=== PATIENT | female | born 1945 | race Two or more races ===

== ENCOUNTER → 2020-01-07 | Outpatient (CLI) | payer OTHER ==
[2020-01-07 13:04] LABS: Urine Bacteria FEW /hpf (None Seen); Urine Blood Negative /uL (Negative); Urine Specific Gravity 1.007 (1.001-1.035); Urine WBC 3 /hpf (0 - 5)
== END | disposition home or self-care (01) ==
LOC: LAB 12:45
PROVIDERS: ATTEND Nurse Practitioner
DX: N39.0 Urinary tract infection, site not specified (principal)
CPT/HCPCS: 81001; 87086

== ENCOUNTER → 2020-07-13 | Outpatient (CLI) | payer OTHER ==
[2020-07-13 10:39] LABS: Basophils # (auto) 0 10 ^3/uL (0-0.2); Eosinophils # (auto) 0 10 ^3/uL (0-0.8); Monocytes # (auto) 0.6 10 ^3/uL (0-1.3); White Blood Cell 4.2 10^3/uL (4.4-10.8)
[2020-07-13 10:41] LABS: Basophils % (auto) 1.1 % (0.0-2.0); Eosinophils % (auto) 0.9 % (0.0-7.0); Hematocrit 25.4 % (36.0-46.0); Hemoglobin 8.2 g/dL (12.2-16.2); Lymphocytes # (auto) 0.5 10 ^3/uL (0.4-5.4); Lymphocytes % (auto) 11.4 % (10.0-50.0); Mean Corpuscular Hemoglobin 26.4 pg (28.0-32.0); Mean Corpuscular Hgb Conc. 32.2 g/dL (32.0-36.0); Monocytes % (auto) 14.8 % (0.0-12.0); Neutrophils % (auto) 71.8 % (37.0-80.0); Platelet Count (auto) 197 10^3/uL (140-450); Red Cell Distribution Width 17.2 % (11.8-14.3)
[2020-07-13 11:10] LABS: Urine Bacteria MANY /hpf (None Seen); Urine Blood Negative /uL (Negative); Urine Mucus FEW (None Seen); Urine Specific Gravity 1.011 (1.001-1.035); Urine WBC 44 /hpf (0 - 5)
[2020-07-13 11:56] LABS: Albumin 3.1 g/dL (3.4-5.0); Calcium 8.7 mg/dL (8.5-10.1); Potassium 3.9 mmol/L (3.5-5.1)
[2020-07-13 12:02] LABS: BUN/Creatinine Ratio 11.2; Bilirubin, Total 0.4 mg/dL (0.2-1.0); Total Protein 7.1 g/dL (6.4-8.2)
== END | disposition home or self-care (01) ==
LOC: LAB 10:12
PROVIDERS: ATTEND Nurse Practitioner
DX: I10 Essential (primary) hypertension (principal); E78.5 Hyperlipidemia, unspecified
CPT/HCPCS: 36415; 80053; 80061; 81001; 84443; 85025

== ENCOUNTER → 2020-09-08 | Outpatient (CLI) | payer OTHER ==
[2020-09-08 13:58] LABS: Urine Bacteria MANY /hpf (None Seen); Urine Blood Negative /uL (Negative); Urine Mucus FEW (None Seen); Urine Specific Gravity 1.009 (1.001-1.035); Urine WBC 120 /hpf (0 - 5)
== END | disposition home or self-care (01) ==
LOC: LAB 13:38
PROVIDERS: ATTEND Nurse Practitioner
DX: N39.0 Urinary tract infection, site not specified (principal)
CPT/HCPCS: 81001; 87086; 87088; 87186

== ENCOUNTER → 2021-03-04 | Day surgery (SDC) | payer OTHER ==
[2021-03-01 12:58] LABS: Basophils # (auto) 0 10 ^3/uL (0-0.2); Eosinophils # (auto) 0.1 10 ^3/uL (0-0.8); Hematocrit 25.1 % (36.0-46.0); Monocytes # (auto) 0.6 10 ^3/uL (0-1.3); Neutrophils # (auto) 2.3 10 ^3/uL (1.6-8.6); White Blood Cell 3.6 10^3/uL (4.4-10.8)
[2021-03-01 13:00] LABS: Eosinophils % (auto) 2.3 % (0.0-7.0); Lymphocytes # (auto) 0.7 10 ^3/uL (0.4-5.4); Lymphocytes % (auto) 18.4 % (10.0-50.0); Mean Corpuscular Hemoglobin 26.8 pg (28.0-32.0); Mean Corpuscular Hgb Conc. 31.8 g/dL (32.0-36.0); Mean Corpuscular Volume 84.1 fL (80.0-100.0); Monocytes % (auto) 15.3 % (0.0-12.0); Red Blood Cells 2.98 10^6/uL (4.0-5.20); Red Cell Distribution Width 17.8 % (11.8-14.3)
[2021-03-01 13:25] LABS: INR 1.08 (0.9-1.15); Partial Thromboplastin Time 27.1 sec (23.6-33.0)
[2021-03-01 13:52] LABS: Urine Bacteria MANY /hpf (None Seen); Urine Blood Negative /uL (Negative); Urine Hyaline Cast FEW /lpf (0 - 2); Urine Specific Gravity 1.017 (1.001-1.035); Urine WBC 7 /hpf (0 - 5)
[2021-03-01 14:20] LABS: Albumin 3.2 g/dL (3.4-5.0); Calcium 8.1 mg/dL (8.5-10.1)
[2021-03-01 14:25] LABS: BUN/Creatinine Ratio 20.6; Bilirubin, Total 0.4 mg/dL (0.2-1.0); Total Protein 7.4 g/dL (6.4-8.2)
[~2021-03-04] VITALS: Ht 167.6 cm; Wt 65.3 kg
[~2021-03-04] MED LIST: CITA10TA8 PO; LOSA-39 PO; METO25TA5 PO; MIDAZOLAM HCL 2MG/2ML 2ml VIAL (1mg/ml) ONE; ONDANSETRON HCL 4 MG/2 ML VIAL ONE; PANT40TA2 PO; PROPOFOL 10 MG/ML 20 ML IV ONE; fentaNYL CITRATE 100 MCG/2 ML VL ONE
[2021-03-04 16:00] VITALS: BP 137/74
== END | disposition home or self-care (01) ==
LOC: GI 09:42
PROVIDERS: ATTEND Internal Medicine Gastroenterology
DX: R13.10 Dysphagia, unspecified (principal); Z98.890 Other specified postprocedural states; Z79.899 Other long term (current) drug therapy; Z20.822 Contact with and (suspected) exposure to COVID-19
CPT/HCPCS: 36415; 43239; 43450; 80053; 81001; 85025; 85610; 85730; J2250; J2405; J2704; J3010; J7030; U0003

== ENCOUNTER 2022-01-06 01:38 | Inpatient (IN) | payer OTHER ==
[2022-01-06] VITALS (10 sets, daily range): BP systolic 113–148; BP diastolic 60–81
[~2022-01-06] VITALS: Ht 165.1 cm; Wt 67.0 kg
[~2022-01-06 01:38] MED LIST changes: -MIDAZOLAM HCL 2MG/2ML 2ml VIAL (1mg/ml) ONE; -ONDANSETRON HCL 4 MG/2 ML VIAL ONE; -PROPOFOL 10 MG/ML 20 ML IV ONE; -fentaNYL CITRATE 100 MCG/2 ML VL ONE
[2022-01-06 02:58] LABS: Basophils # (auto) 0 10 ^3/uL (0-0.2); Eosinophils # (auto) 0.2 10 ^3/uL (0-0.8); Eosinophils % (auto) 5.2 % (0.0-7.0); Hematocrit 18.7 % (36.0-46.0); Lymphocytes # (auto) 0.7 10 ^3/uL (0.4-5.4); Lymphocytes % (auto) 20.2 % (10.0-50.0); Mean Corpuscular Hemoglobin 23.7 pg (28.0-32.0); Mean Corpuscular Hgb Conc. 30.7 g/dL (32.0-36.0); Mean Corpuscular Volume 77.2 fL (80.0-100.0); Monocytes # (auto) 0.5 10 ^3/uL (0-1.3); Monocytes % (auto) 15.6 % (0.0-12.0); Neutrophils # (auto) 1.9 10 ^3/uL (1.6-8.6); Nucleated Red Blood Cells % 0.3 %; Red Blood Cells 2.42 10^6/uL (4.0-5.20); Red Cell Distribution Width 17.9 % (11.8-14.3); White Blood Cell 3.2 10^3/uL (4.4-10.8)
[2022-01-06 03:06] LABS: Hemoglobin 5.7 g/dL (12.2-16.2)
[2022-01-06 03:13] LABS: Albumin 3.1 g/dL (3.4-5.0); Potassium 4.2 mmol/L (3.5-5.1)
[2022-01-06 03:16] LABS: Urine Bacteria MANY /hpf (None Seen); Urine Blood Negative /uL (Negative); Urine Specific Gravity 1.006 (1.001-1.035); Urine WBC 6 /hpf (0 - 5)
[2022-01-06 03:17] LABS: BUN/Creatinine Ratio 17.5; Bilirubin, Total 0.6 mg/dL (0.2-1.0); Calcium 8.5 mg/dL (8.5-10.1)
[2022-01-06] MEDS ORDERED: cefTRIAXone 1GM/50ML D5W 50 ML IV ONE (05:45)
[2022-01-06] MEDS ORDERED: MORPHINE SULFATE INJ 2 MG/ml SYRG IV PRN (11:00)
[2022-01-06] MEDS ORDERED: FUROSEMIDE 40 MG/4 ML VIAL IV ONE (11:00)
[2022-01-06] MEDS ORDERED: PANTOPRAZOLE 40 MG/10 ML VIAL INJ IV ONE (11:00)
[2022-01-06] MEDS ORDERED: ONDANSETRON HCL 4 MG/2 ML VIAL IV PRN (11:00)
[2022-01-06 12:02] LABS: Cholesterol 92 mg/dL (< 200)
[2022-01-06 12:05] LABS: HDL Cholesterol 33 mg/dL (40-59); LDL Cholesterol 50 mg/dL (< 100); Triglycerides 87 mg/dL (< 150)
[2022-01-06 13:36] LABS: Hepatitis A Ab IgM Negative; Hepatitis B Core IgM Negative; Hepatitis C Antibody Negative (Negative)
[2022-01-06] MEDS: metroNIDAZOLE 500MG/100ML 100 ML IV SCH ×2 (14:45→22:08)
[2022-01-06] MEDS ORDERED: hydrALAZINE HCL 20 MG/ML VL IV PRN (15:30)
[2022-01-06] MEDS ORDERED: IOHEXOL 350 MG/ML 100ML IJ ONE ×2 (15:53→18:05)
[2022-01-06 18:05] LABS: INR 1.18 (0.9-1.15)
[2022-01-06 19:47] LABS: Hematocrit 29.9 % (36.0-46.0); Hemoglobin 9.3 g/dL (12.2-16.2)
[2022-01-06] MEDS: PANTOPRAZOLE 40 MG/10 ML VIAL INJ IV SCH (22:08)
[2022-01-06] MEDS: METOPROLOL TARTRATE 25 MG TAB PO SCH (22:09)
[2022-01-07 01:23] LABS: Hematocrit 25.7 % (36.0-46.0); Hemoglobin 8.3 g/dL (12.2-16.2)
[2022-01-07 05:00] VITALS: BP 139/69
[2022-01-07] MEDS: metroNIDAZOLE 500MG/100ML 100 ML IV SCH ×3 (05:49→22:37)
[2022-01-07 06:51] LABS: White Blood Cell 2.5 10^3/uL (4.4-10.8)
[2022-01-07 06:54] LABS: Hematocrit 26.1 % (36.0-46.0); Hemoglobin 8.4 g/dL (12.2-16.2); Mean Corpuscular Hemoglobin 25.5 pg (28.0-32.0); Mean Corpuscular Volume 79.8 fL (80.0-100.0); Red Blood Cells 3.28 10^6/uL (4.0-5.20); Red Cell Distribution Width 18.4 % (11.8-14.3)
[2022-01-07 06:56] LABS: Blast Cells 0; Reactive Lymphocytes 0
[2022-01-07 07:02] LABS: Potassium 3.9 mmol/L (3.5-5.1)
[2022-01-07 07:09] LABS: BUN/Creatinine Ratio 15.6; Calcium 8.4 mg/dL (8.5-10.1); Total Protein 6.9 g/dL (6.4-8.2)
[2022-01-07 07:26] LABS: Band Neutrophils % (manual) 3; Basophils % (manual) 1 (0.0-2.0); Eosinophils % (manual) 3 (0-7); Lymphocytes % (manual) 14 (10.0-50.0); Metamyelocytes % 1; Monocytes % (manual) 3 (0-12); Myelocytes % 1; Promyelocytes % 1
[2022-01-07 08:01] VITALS: BP 140/70
[2022-01-07 09:00] VITALS: BP 122/54
[2022-01-07] MEDS: PANTOPRAZOLE 40 MG/10 ML VIAL INJ IV SCH ×2 (09:24→22:37)
[2022-01-07] MEDS: METOPROLOL TARTRATE 25 MG TAB PO SCH ×2 (09:26→22:37)
[2022-01-07] MEDS: POTASSIUM CHL 10 Meq TABLET PO SCH (09:27)
[2022-01-07] MEDS: LOSARTAN POTASSIUM 25 MG TAB PO SCH (09:28)
[2022-01-07] MEDS ORDERED: FUROSEMIDE 20 MG/2 ML VIAL IV SCH (10:00)
[2022-01-07] MEDS: SODIUM CHLORIDE 0.9% 1,000 ML IV SCH ×2 (11:00→21:00)
[2022-01-07 13:00] VITALS: BP 142/63
[2022-01-07 16:36] VITALS: BP 149/75
[2022-01-07] MEDS: FUROSEMIDE 20 MG/2 ML VIAL IV SCH ×2 (18:00→22:35)
[2022-01-07 22:00] VITALS: BP 106/67
[2022-01-08] MEDS ORDERED: TEMAZEPAM 15 MG CAP PO ONE (00:30)
[2022-01-08 04:54] VITALS: BP 110/48
[2022-01-08] MEDS: metroNIDAZOLE 500MG/100ML 100 ML IV SCH ×2 (05:15→14:04)
[2022-01-08] MEDS: SODIUM CHLORIDE 0.9% 1,000 ML IV SCH ×2 (05:16→17:22)
[2022-01-08 07:47] LABS: Hemoglobin 8.8 g/dL (12.2-16.2); Red Cell Distribution Width 18.2 % (11.8-14.3); White Blood Cell 2.3 10^3/uL (4.4-10.8)
[2022-01-08 07:50] LABS: Hematocrit 27.6 % (36.0-46.0); Mean Corpuscular Hemoglobin 25.1 pg (28.0-32.0); Mean Corpuscular Hgb Conc. 31.9 g/dL (32.0-36.0); Mean Corpuscular Volume 78.6 fL (80.0-100.0); Red Blood Cells 3.52 10^6/uL (4.0-5.20)
[2022-01-08 08:00] VITALS: BP 120/70
[2022-01-08 08:08] LABS: Basophils % (manual) 0 (0.0-2.0); Blast Cells 0; Metamyelocytes % 0; Myelocytes % 0; Promyelocytes % 0; Reactive Lymphocytes 0
[2022-01-08 08:48] LABS: Band Neutrophils % (manual) 1; Eosinophils % (manual) 7 (0-7); Lymphocytes % (manual) 25 (10.0-50.0); Monocytes % (manual) 7 (0-12)
[2022-01-08 09:08] VITALS: BP_SYST 102; BP_SYST 139; BP_DIAS 46; BP_DIAS 95
[2022-01-08] MEDS: FUROSEMIDE 20 MG/2 ML VIAL IV SCH (09:19)
[2022-01-08] MEDS: LOSARTAN POTASSIUM 25 MG TAB PO SCH (09:20)
[2022-01-08] MEDS: METOPROLOL TARTRATE 25 MG TAB PO SCH (09:21)
[2022-01-08] MEDS: POTASSIUM CHL 10 Meq TABLET PO SCH (09:21)
[2022-01-08] MEDS: PANTOPRAZOLE 40 MG/10 ML VIAL INJ IV SCH (09:22)
[2022-01-08 13:01] VITALS: BP 116/56
[2022-01-08 16:15] VITALS: BP 110/56
[2022-01-08 17:00] VITALS: BP 121/65
== END 2022-01-08 18:38 | disposition home or self-care (01) | DRG 811 ==
LOC: ER 01:38 → EDUNIT# 01:38 → EDBD 01:38 → TELE 11:14 → TELE-WESTW 18:19
PROVIDERS: ADMIT Registered Nurse; ATTEND Internal Medicine
PROC: 30233N1 Transfusion of Nonautologous Red Blood Cells into Peripheral Vein, Percutaneous Approach (ICD-10-PCS; principal; 2022-01-06)
DX: D64.9 Anemia, unspecified (principal); I50.31 Acute diastolic (congestive) heart failure; J96.00 Acute respiratory failure, unspecified whether with hypoxia or hypercapnia; N39.0 Urinary tract infection, site not specified; K92.2 Gastrointestinal hemorrhage, unspecified; K72.90 Hepatic failure, unspecified without coma; F32.A Depression, unspecified; Z20.822 Contact with and (suspected) exposure to COVID-19; I11.0 Hypertensive heart disease with heart failure; D69.6 Thrombocytopenia, unspecified; I27.20 Pulmonary hypertension, unspecified; Z88.1 Allergy status to other antibiotic agents; Z88.5 Allergy status to narcotic agent; Z88.8 Allergy status to other drugs, medicaments and biological substances
CPT/HCPCS: 36415; 71045; 71275; 74176; 76705; 80053; 80061; 80074; 81001; 82728; 83036; 83880; 84443; 84484; 85007; 85014; 85018; 85025; 85027; 85379; 85610; 86038; 86850; 86900; 86901; 86920; 87086; 93005; 93306; 96365; 96375; C9113; G0378; J0696; J3490

== ENCOUNTER → 2022-10-06 | Outpatient (CLI) | payer OTHER ==
[~2022-10-06] MED LIST changes: -LOSA-39 PO; +LOSA100T58 PO
[2022-10-06 14:37] LABS: Basophils # (auto) 0 10 ^3/uL (0-0.2); Eosinophils # (auto) 0.1 10 ^3/uL (0-0.8); Lymphocytes # (auto) 0.5 10 ^3/uL (0.4-5.4); Mean Corpuscular Hemoglobin 23.6 pg (28.0-32.0); Monocytes # (auto) 0.3 10 ^3/uL (0-1.3); Monocytes % (auto) 14.8 % (0.0-12.0); White Blood Cell 2.3 10^3/uL (4.4-10.8)
[2022-10-06 14:38] LABS: Basophils % (auto) 1.3 % (0.0-2.0); Eosinophils % (auto) 4.1 % (0.0-7.0); Hematocrit 19.7 % (36.0-46.0); Lymphocytes % (auto) 20.5 % (10.0-50.0); Mean Corpuscular Hgb Conc. 30.1 g/dL (32.0-36.0); Mean Corpuscular Volume 78.5 fL (80.0-100.0); Neutrophils # (auto) 1.4 10 ^3/uL (1.6-8.6); Neutrophils % (auto) 59.3 % (37.0-80.0); Red Blood Cells 2.51 10^6/uL (4.0-5.20); Red Cell Distribution Width 18.6 % (11.8-14.3)
[2022-10-06 14:46] LABS: Hemoglobin 5.9 g/dL (12.2-16.2)
[2022-10-06 15:08] LABS: Albumin 3.1 g/dL (3.4-5.0); Calcium 7.9 mg/dL (8.5-10.1); Potassium 4.3 mmol/L (3.5-5.1)
[2022-10-06 15:12] LABS: BUN/Creatinine Ratio 15.6 (10.0-20.0); Bilirubin, Total 0.9 mg/dL (0.2-1.0); Total Protein 7.3 g/dL (6.4-8.2)
== END | disposition home or self-care (01) ==
LOC: LAB 14:14
DX: I50.9 Heart failure, unspecified (principal); I27.0 Primary pulmonary hypertension
CPT/HCPCS: 36415; 80053; 82728; 83880; 84443; 85025

== ENCOUNTER 2022-10-07 17:58 | Inpatient (IN) | payer OTHER ==
[~2022-10-07] VITALS: Ht 165.1 cm; Wt 61.3 kg
[2022-10-07 18:45] LABS: Basophils # (auto) 0 10 ^3/uL (0-0.2); Lymphocytes # (auto) 0.4 10 ^3/uL (0.4-5.4); Mean Corpuscular Volume 79.4 fL (80.0-100.0); Monocytes # (auto) 0.4 10 ^3/uL (0-1.3); Neutrophils # (auto) 1.6 10 ^3/uL (1.6-8.6); Nucleated Red Blood Cells % 0.1 %
[2022-10-07 18:47] LABS: Basophils % (auto) 1.2 % (0.0-2.0); Eosinophils # (auto) 0.1 10 ^3/uL (0-0.8); Eosinophils % (auto) 3.9 % (0.0-7.0); Hematocrit 19.3 % (36.0-46.0); Lymphocytes % (auto) 15.9 % (10.0-50.0); Mean Corpuscular Hemoglobin 23.7 pg (28.0-32.0); Mean Corpuscular Hgb Conc. 29.8 g/dL (32.0-36.0); Monocytes % (auto) 15.9 % (0.0-12.0); Neutrophils % (auto) 63.1 % (37.0-80.0); Red Blood Cells 2.43 10^6/uL (4.0-5.20); Red Cell Distribution Width 18.8 % (11.8-14.3); White Blood Cell 2.6 10^3/uL (4.4-10.8)
[2022-10-07] MEDS ORDERED: IOHEXOL 300 MG/ML 100ML BOTTLE IJ ONE (18:51)
[2022-10-07 18:52] LABS: Hemoglobin 5.8 g/dL (12.2-16.2)
[2022-10-07 19:01] LABS: Potassium 4.4 mmol/L (3.5-5.1)
[2022-10-07 19:02] LABS: INR 1.28 (0.9-1.15)
[2022-10-07 19:04] LABS: Bilirubin, Total 0.8 mg/dL (0.2-1.0)
[2022-10-07] MEDS ORDERED: DOXYCYCLINE 100 MG TAB/CAP PO ONE (20:15)
[2022-10-07] MEDS ORDERED: cefTRIAXone 1GM/50ML D5W 50 ML IV ONE (20:15)
[2022-10-07] MEDS ORDERED: FUROSEMIDE 40 MG/4 ML VIAL IV ONE (20:15)
[2022-10-07] MEDS ORDERED: oxyCODONE HCL 5MG TAB PO STA (20:56)
[2022-10-07] MEDS ORDERED: IBUPROFEN 400 MG TAB PO PRN (23:00)
[2022-10-07] MEDS ORDERED: DOCUSATE SOD 100 MG CAP PO PRN (23:00)
[2022-10-07] MEDS ORDERED: ONDANSETRON HCL 4 MG/2 ML VIAL IV PRN (23:00)
[2022-10-08] VITALS (8 sets, daily range): BP systolic 104–139; BP diastolic 40–86
[2022-10-08] MEDS ORDERED: PANTOPRAZOLE 40 MG/10 ML VIAL INJ IV ONE
[2022-10-08] MEDS ORDERED: NITROGLYCERIN 0.4 MG SL TAB SL PRN (00:30)
[2022-10-08] MEDS ORDERED: MORPHINE SULFATE INJ 2 MG/ml SYRG IV PRN (00:30)
[2022-10-08] MEDS: SODIUM CHLOR 0.9% PF (SALINE LOCK) 10ML VIAL/SYR IV SCH ×3 (06:30→22:46)
[2022-10-08 06:49] LABS: Hematocrit 26.4 % (36.0-46.0); Hemoglobin 8.4 g/dL (12.2-16.2); Mean Corpuscular Hemoglobin 25.5 pg (28.0-32.0); White Blood Cell 2.2 10^3/uL (4.4-10.8)
[2022-10-08 06:51] LABS: Mean Corpuscular Hgb Conc. 31.6 g/dL (32.0-36.0); Mean Corpuscular Volume 80.7 fL (80.0-100.0); Red Blood Cells 3.28 10^6/uL (4.0-5.20); Red Cell Distribution Width 16.9 % (11.8-14.3)
[2022-10-08 07:06] LABS: Albumin 2.8 g/dL (3.4-5.0); Potassium 4.4 mmol/L (3.5-5.1)
[2022-10-08 07:08] LABS: BUN/Creatinine Ratio 16.1 (10.0-20.0)
[2022-10-08 07:11] LABS: Total Protein 6.6 g/dL (6.4-8.2)
[2022-10-08 07:13] LABS: Band Neutrophils % (manual) 0; Basophils % (manual) 0 (0.0-2.0); Blast Cells 0; Metamyelocytes % 0; Myelocytes % 0; Promyelocytes % 0; Reactive Lymphocytes 0
[2022-10-08] MEDS: CARVEDILOL 3.125 MG TAB PO SCH ×2 (09:51→22:00)
[2022-10-08] MEDS: FUROSEMIDE 40 MG/4 ML VIAL IV SCH (09:52)
[2022-10-08] MEDS ORDERED: FAMOTIDINE (10MG/ML) 2ML VL IV SCH (10:00)
[2022-10-08] MEDS ORDERED: DOXYCYCLINE 100MG/250ML 250 ML IV SCH (10:00)
[2022-10-08] MEDS ORDERED: cefTRIAXone 1GM/50ML D5W 50 ML IV ONE ×2 (11:00)
[2022-10-08 12:11] LABS: Urine Bacteria FEW /hpf (None Seen); Urine Blood Negative /uL (Negative); Urine Mucus FEW (None Seen); Urine Specific Gravity 1.033 (1.001-1.035); Urine WBC 11 /hpf (0 - 5)
[2022-10-08 12:53] LABS: Cholesterol 89 mg/dL (< 200)
[2022-10-08 12:55] LABS: HDL Cholesterol 26 mg/dL (40-59); LDL Cholesterol 55 mg/dL (< 100); Triglycerides 62 mg/dL (< 150)
[2022-10-08 13:34] LABS: Hemoglobin 8.9 g/dL (12.2-16.2); Mean Corpuscular Hemoglobin 25.6 pg (28.0-32.0); Red Blood Cells 3.49 10^6/uL (4.0-5.20); White Blood Cell 2.3 10^3/uL (4.4-10.8)
[2022-10-08 13:37] LABS: Hematocrit 29.2 % (36.0-46.0); Mean Corpuscular Hgb Conc. 30.5 g/dL (32.0-36.0); Mean Corpuscular Volume 83.8 fL (80.0-100.0); Red Cell Distribution Width 16.9 % (11.8-14.3)
[2022-10-08 13:41] LABS: Lymphocytes % (manual) 22 (10.0-50.0)
[2022-10-08 13:42] LABS: Eosinophils % (manual) 5 (0-7); Monocytes % (manual) 14 (0-12)
[2022-10-08 13:50] LABS: Band Neutrophils % (manual) 0; Basophils % (manual) 0 (0.0-2.0); Blast Cells 0; Eosinophils % (manual) 0 (0-7); Metamyelocytes % 0; Myelocytes % 0; Promyelocytes % 0; Reactive Lymphocytes 0
[2022-10-08] MEDS: metroNIDAZOLE 500MG/100ML 100 ML IV SCH ×2 (13:57→22:46)
[2022-10-08 14:31] LABS: Lymphocytes % (manual) 28 (10.0-50.0); Monocytes % (manual) 8 (0-12)
[2022-10-08] MEDS ORDERED: ACETAMINOPHEN 325 MG TAB PO PRN (19:15)
[2022-10-08] MEDS: PANTOPRAZOLE 40 MG/10 ML VIAL INJ IV SCH (22:46)
[2022-10-09] VITALS (7 sets, daily range): BP systolic 105–136; BP diastolic 50–61
[2022-10-09] MEDS ORDERED: LORazepam 2MG/ML-1ML VIAL IV PRN (00:30)
[2022-10-09] MEDS ORDERED: HALOPERIDOL LACTATE 5 MG/ML INJ VIAL IM PRN (00:45)
[2022-10-09] MEDS: metroNIDAZOLE 500MG/100ML 100 ML IV SCH ×3 (05:21→21:52)
[2022-10-09] MEDS: SODIUM CHLOR 0.9% PF (SALINE LOCK) 10ML VIAL/SYR IV SCH ×3 (05:21→21:51)
[2022-10-09 05:26] LABS: Potassium 3.6 mmol/L (3.5-5.1)
[2022-10-09 05:31] LABS: % Iron Saturation 14.5 % (15-50)
[2022-10-09 05:33] LABS: BUN/Creatinine Ratio 14.8 (10.0-20.0); Bilirubin, Total 1.1 mg/dL (0.2-1.0); CRP High Sensitivity 0.43 mg/dL (< 0.3); Calcium 8.4 mg/dL (8.5-10.1); Phosphorus 3.1 mg/dL (2.5-4.90); Total Protein 6.9 g/dL (6.4-8.2)
[2022-10-09 05:43] LABS: INR 1.31 (0.9-1.15); Partial Thromboplastin Time 29.6 SEC (24.5-34.5)
[2022-10-09 05:52] LABS: Basophils # (auto) 0 10 ^3/uL (0-0.2); Basophils % (auto) 1.2 % (0.0-2.0); Eosinophils # (auto) 0.1 10 ^3/uL (0-0.8); Hemoglobin 8.4 g/dL (12.2-16.2); Lymphocytes # (auto) 0.2 10 ^3/uL (0.4-5.4); Lymphocytes % (auto) 10.1 % (10.0-50.0); Monocytes # (auto) 0.3 10 ^3/uL (0-1.3); Neutrophils # (auto) 1.8 10 ^3/uL (1.6-8.6); White Blood Cell 2.4 10^3/uL (4.4-10.8)
[2022-10-09 05:55] LABS: Eosinophils % (auto) 2.1 % (0.0-7.0); Hematocrit 26.6 % (36.0-46.0); Mean Corpuscular Hemoglobin 25.7 pg (28.0-32.0); Mean Corpuscular Hgb Conc. 31.7 g/dL (32.0-36.0); Mean Corpuscular Volume 81.1 fL (80.0-100.0); Neutrophils % (auto) 75.6 % (37.0-80.0); Nucleated Red Blood Cells % 0.3 %; Red Blood Cells 3.28 10^6/uL (4.0-5.20); Red Cell Distribution Width 17.3 % (11.8-14.3)
[2022-10-09 06:05] LABS: Thyroid Stimulating Hormone 1.01 uIU/mL (0.358-3.74)
[2022-10-09] MEDS: PANTOPRAZOLE 40 MG/10 ML VIAL INJ IV SCH ×2 (09:20→21:51)
[2022-10-09] MEDS: FUROSEMIDE 40 MG/4 ML VIAL IV SCH (09:20)
[2022-10-09] MEDS: cefTRIAXone 1GM/50ML D5W 50 ML IV SCH (09:20)
[2022-10-09] MEDS: CARVEDILOL 3.125 MG TAB PO SCH ×2 (09:21→21:51)
[2022-10-09] MEDS ORDERED: POTASSIUM CHL 20 Meq TABLET PO ONE (14:15)
[2022-10-09] MEDS ORDERED: MAGNESIUM SULFATE 1GM/100ML 100 ML IV ONE (14:15)
[2022-10-10 05:00] VITALS: BP 103/46
[2022-10-10] MEDS: metroNIDAZOLE 500MG/100ML 100 ML IV SCH ×2 (05:16→13:24)
[2022-10-10] MEDS: SODIUM CHLOR 0.9% PF (SALINE LOCK) 10ML VIAL/SYR IV SCH ×2 (05:19→13:24)
[2022-10-10 06:12] LABS: Hemoglobin 8.7 g/dL (12.2-16.2); Mean Corpuscular Hemoglobin 25.4 pg (28.0-32.0); Mean Corpuscular Volume 79.5 fL (80.0-100.0); Red Cell Distribution Width 17.3 % (11.8-14.3); White Blood Cell 2.1 10^3/uL (4.4-10.8)
[2022-10-10 06:19] LABS: Band Neutrophils % (manual) 0; Basophils % (manual) 0 (0.0-2.0); Blast Cells 0; Metamyelocytes % 0; Myelocytes % 0; Promyelocytes % 0; Reactive Lymphocytes 0
[2022-10-10 06:26] LABS: Albumin 2.7 g/dL (3.4-5.0); Calcium 8.1 mg/dL (8.5-10.1); Magnesium 2.3 mg/dL (1.6-2.6); Potassium 3.5 mmol/L (3.5-5.1)
[2022-10-10 06:28] LABS: BUN/Creatinine Ratio 14.3 (10.0-20.0); Bilirubin, Total 0.9 mg/dL (0.2-1.0); Total Protein 6.5 g/dL (6.4-8.2)
[2022-10-10 08:00] VITALS: BP 131/68
[2022-10-10] MEDS: cefTRIAXone 1GM/50ML D5W 50 ML IV SCH (08:57)
[2022-10-10] MEDS: FUROSEMIDE 40 MG/4 ML VIAL IV SCH (08:57)
[2022-10-10] MEDS: CARVEDILOL 3.125 MG TAB PO SCH (08:58)
[2022-10-10] MEDS: PANTOPRAZOLE 40 MG/10 ML VIAL INJ IV SCH (08:58)
[2022-10-10 09:00] VITALS: BP 131/68
[2022-10-10] MEDS ORDERED: MIDAZOLAM HCL 5 MG/ML-1ML VIAL ONE (09:06)
[2022-10-10] MEDS ORDERED: SODIUM CHLORIDE LOCK 0 ML ONE (09:06)
[2022-10-10] MEDS ORDERED: LIDOCAINE VISCOUS 2% 15ML UD ONE (09:06)
[2022-10-10] MEDS ORDERED: fentaNYL CITRATE 100 MCG/2 ML VL ONE (09:07)
[2022-10-10] MEDS ORDERED: diphenhdrAMINE HCL 50 MG/1 ML VL ONE (09:07)
[2022-10-10 09:26] LABS: Ferritin 18.7 ng/mL (10-322); Free T4 (Free Thyroxine) 1.04 ng/dL (0.89-1.76)
[2022-10-10 09:27] LABS: Folate (Folic Acid) 10.51 ng/mL (5.38-24)
[2022-10-10 09:30] LABS: Eosinophils % (manual) 3 (0-7); Lymphocytes % (manual) 28 (10.0-50.0); Monocytes % (manual) 14 (0-12)
[2022-10-10] MEDS ORDERED: FAMO20TA10 PO (11:50)
[2022-10-10] MEDS ORDERED: MET500T PO (11:50)
[2022-10-10] MEDS ORDERED: LEVO500T91 PO (11:50)
[2022-10-10] MEDS ORDERED: POTASSIUM CHL 20 Meq TABLET PO ONE (12:15)
[2022-10-10 13:00] VITALS: BP 131/61
== END 2022-10-10 15:00 | disposition home or self-care (01) | DRG 432 ==
LOC: EDBD 17:58 → ER 17:58 → EDUNIT# 17:58 → TELE 10-08 00:27 → TELE-EAST 10-08 22:00
PROVIDERS: ADMIT Nurse Practitioner Family; ATTEND Internal Medicine
PROC: 30233N1 Transfusion of Nonautologous Red Blood Cells into Peripheral Vein, Percutaneous Approach (ICD-10-PCS; principal; 2022-10-08)
DX: K74.3 Primary biliary cirrhosis (principal); I50.31 Acute diastolic (congestive) heart failure; J18.9 Pneumonia, unspecified organism; I85.11 Secondary esophageal varices with bleeding; D61.818 Other pancytopenia; I11.0 Hypertensive heart disease with heart failure; I27.20 Pulmonary hypertension, unspecified; R09.02 Hypoxemia; R09.89 Other specified symptoms and signs involving the circulatory and respiratory systems; F32.A Depression, unspecified; K52.9 Noninfective gastroenteritis and colitis, unspecified; Z88.6 Allergy status to analgesic agent; Z88.1 Allergy status to other antibiotic agents; Z88.5 Allergy status to narcotic agent
CPT/HCPCS: 36415; 36430; 71045; 74177; 80053; 80061; 81001; 82040; 82105; 82140; 82270; 82607; 82668; 82728; 82746; 83010; 83036; 83540; 83550; 83605; 83615; 83735; 83880; 84100; 84439; 84443; 84484; 85007; 85025; 85027; 85045; 85379; 85610; 85652; 85730; 86141; 86850; 86900; 86901; 86920; 93005; 93306; 93970; 96365; 96366; 96367; 96375; 99291; C9113; G0378; J0696; J2250; J3490

== ENCOUNTER → 2023-01-24 | Outpatient (CLI) | payer OTHER ==
[~2023-01-24] VITALS: Ht 167.6 cm; Wt 61.2 kg
[~2023-01-24] MED LIST changes: +ADENOSINE 51 MG in GIVE UN-DILUTED 0 ML IV STA; +FAMO20TA10 PO; +LEVO500T91 PO; +MET500T PO; -PANT40TA2 PO
== END | disposition home or self-care (01) ==
LOC: XYW 07:11
PROVIDERS: ATTEND Student in an Organized Health Care Education/Training Program
DX: R07.9 Chest pain, unspecified (principal)
CPT/HCPCS: 78452; 93017; A9500; J0153

== ENCOUNTER → 2023-06-05 | Outpatient (CLI) | payer OTHER ==
[~2023-06-05] MED LIST changes: -ADENOSINE 51 MG in GIVE UN-DILUTED 0 ML IV STA
[2023-06-05 12:28] LABS: Basophils # (auto) 0 10 ^3/uL (0-0.2); Eosinophils # (auto) 0.2 10 ^3/uL (0-0.8); Hemoglobin 7.6 g/dL (12.2-16.2); Mean Corpuscular Volume 86.9 fL (80.0-100.0); Neutrophils # (auto) 1.1 10 ^3/uL (1.6-8.6); White Blood Cell 2.2 10^3/uL (4.4-10.8)
[2023-06-05 12:30] LABS: Basophils % (auto) 1.3 % (0.0-2.0); Eosinophils % (auto) 8.3 % (0.0-7.0); Lymphocytes # (auto) 0.5 10 ^3/uL (0.4-5.4); Lymphocytes % (auto) 24.7 % (10.0-50.0); Mean Corpuscular Hemoglobin 27.4 pg (28.0-32.0); Mean Corpuscular Hgb Conc. 31.6 g/dL (32.0-36.0); Monocytes # (auto) 0.4 10 ^3/uL (0-1.3); Monocytes % (auto) 16.3 % (0.0-12.0); Neutrophils % (auto) 49.4 % (37.0-80.0); Red Blood Cells 2.76 10^6/uL (4.0-5.20); Red Cell Distribution Width 19.7 % (11.8-14.3)
[2023-06-05 12:43] LABS: INR 1.29 (0.9-1.15); Prothrombin Time 13.3 sec (9.3-11.8)
[2023-06-05 13:12] LABS: Alanine Aminotransferase 11 U/L (7-40); Alkaline Phosphatase 125 U/L (46-116); Anion Gap 6 (5-15); Aspartate Aminotransferase 50 U/L (13-40); BUN/Creatinine Ratio 16.5 (10.0-20.0); Blood Urea Nitrogen 13 mg/dL (9-23); Calcium 8.7 mg/dL (8.5-10.1); Carbon Dioxide 26 mmol/L (20-30); Chloride 106 mmol/L (98-107); Glucose 120 mg/dL (74-106); Potassium 4.4 mmol/L (3.5-5.1); Sodium 138 mmol/L (136-145)
[2023-06-05 13:13] LABS: Albumin 3.3 g/dL (3.2-4.8); Bilirubin, Total 0.8 mg/dL (0.2-1.0); Total Protein 6.8 g/dL (5.7-8.2)
[2023-06-05 13:15] LABS: % Iron Saturation 5.2 % (15-50)
== END | disposition home or self-care (01) ==
LOC: LAB 12:13
PROVIDERS: ATTEND Internal Medicine Gastroenterology
DX: K74.60 Unspecified cirrhosis of liver (principal); D64.9 Anemia, unspecified; R94.5 Abnormal results of liver function studies
CPT/HCPCS: 36415; 80053; 82105; 83540; 83550; 85025; 85610

== ENCOUNTER 2023-08-15 13:11 | Inpatient (IN) | payer OTHER ==
[~2023-08-15] VITALS: Ht 157.5 cm; Wt 60.4 kg
[~2023-08-15 13:11] MED LIST changes: +LOSA-535 PO; -LOSA100T58 PO
[2023-08-17] MEDS: OCTREOTIDE ACETATE 500 MCG in SODIUM CHL 0.9% 99 ML IV SCH (21:30)
[2023-08-17] MEDS: PANTOPRAZOLE 40mg/50ML NS AE 50 ML IV SCH (21:30)
[2023-08-17 21:58] LABS: Basophils # (auto) 0 10 ^3/uL (0-0.2); Basophils % (auto) 0.1 % (0.0-2.0); Eosinophils # (auto) 0 10 ^3/uL (0-0.8); Eosinophils % (auto) 0.2 % (0.0-7.0); Hematocrit 23.2 % (36.0-46.0); Hemoglobin 7.6 g/dL (12.2-16.2); Lymphocytes # (auto) 0.5 10 ^3/uL (0.4-5.4); Lymphocytes % (auto) 7.3 % (10.0-50.0); Mean Corpuscular Hemoglobin 28.8 pg (28.0-32.0); Mean Corpuscular Hgb Conc. 32.9 g/dL (32.0-36.0); Mean Corpuscular Volume 87.6 fL (80.0-100.0); Monocytes # (auto) 0.9 10 ^3/uL (0-1.3); Neutrophils # (auto) 5.8 10 ^3/uL (1.6-8.6); Neutrophils % (auto) 80.4 % (37.0-80.0); Red Blood Cells 2.65 10^6/uL (4.0-5.20); Red Cell Distribution Width 17.1 % (11.8-14.3); White Blood Cell 7.3 10^3/uL (4.4-10.8)
[2023-08-17 22:00] VITALS: BP 120/60; PULSE 95; PULSE 99; RESP 15; RESP 16; TEMP 99.7; O2SAT 99
[2023-08-17 22:17] LABS: Alanine Aminotransferase 13 U/L (7-40); Albumin 2.6 g/dL (3.2-4.8); Alkaline Phosphatase 88 U/L (46-116); Anion Gap 5 (5-15); Aspartate Aminotransferase 38 U/L (13-40); BUN/Creatinine Ratio 30.6 (10.0-20.0); Bilirubin, Total 1.6 mg/dL (0.2-1.0); Blood Urea Nitrogen 22 mg/dL (9-23); Calcium 7.9 mg/dL (8.7-10.4); Carbon Dioxide 23 mmol/L (20-30); Chloride 114 mmol/L (98-107); Glucose 132 mg/dL (74-106); Potassium 3.7 mmol/L (3.5-5.1); Sodium 142 mmol/L (136-145)
[2023-08-17 22:18] LABS: Total Protein 5.3 g/dL (5.7-8.2)
[2023-08-17 22:19] LABS: INR 1.47 (0.9-1.15); Partial Thromboplastin Time 37.1 SEC (24.5-34.5); Prothrombin Time 15.1 sec (9.3-11.8)
[2023-08-17] MEDS ORDERED: CLINIMIX PER PHARMACY 0 ML IV SCH (22:30)
[2023-08-17] MEDS ORDERED: METOPROLOL TARTRATE 1MG/1ML-5ML VIAL IV PRN (22:30)
[2023-08-17 23:00] VITALS: BP 117/62; PULSE 96; RESP 38; O2SAT 99
[2023-08-18] VITALS (19 sets, daily range): BP systolic 96–138; BP diastolic 46–75; PULSE 84–112; RESP 11–24; TEMP 97.9–99.7; O2SAT 90–100
[2023-08-18 09:07] LABS: Potassium 3.7 mmol/L (3.5-5.1)
[2023-08-18 09:08] LABS: Calcium 8.1 mg/dL (8.5-10.1)
[2023-08-18 09:13] LABS: BUN/Creatinine Ratio 29.2 (10.0-20.0)
[2023-08-18 09:15] LABS: Albumin 2.3 g/dL (3.2-4.8)
[2023-08-18 10:19] LABS: Phosphorus 2.6 mg/dL (2.4-5.1)
[2023-08-18] MEDS ORDERED: SPIR50TA5 PO (15:14)
[2023-08-18] MEDS ORDERED: PANT-62 PO (15:14)
[2023-08-18] MEDS ORDERED: CITA-73 PO (15:14)
[2023-08-18] MEDS ORDERED: AMLO1TAB22 PO (15:14)
[2023-08-18] MEDS: AMINO ACID INFUSION IN D5W 1,000 ML IV SCH (20:26)
[2023-08-19] VITALS (22 sets, daily range): BP systolic 104–153; BP diastolic 58–79; PULSE 79–103; RESP 15–26; TEMP 98–99.2; O2SAT 90–100
[2023-08-19] MEDS ORDERED: DEXTROSE (50%) 50ML SYRG IV SCH
[2023-08-19] MEDS: ACCU-CHEK COMFORT CURVE STRIP VI SCH (00:30)
[2023-08-19] MEDS: InsuLIN REG 1unit/0.01ml Soln (100units/ml) SC SCH (00:31)
[2023-08-19 05:32] LABS: Albumin 2.2 g/dL (3.2-4.8); Alkaline Phosphatase 79 U/L (46-116); Anion Gap 6 (5-15); Aspartate Aminotransferase 42 U/L (13-40); BUN/Creatinine Ratio 22.1 (10.0-20.0); Blood Urea Nitrogen 15 mg/dL (9-23); Calcium 7.9 mg/dL (8.5-10.1); Carbon Dioxide 21 mmol/L (20-30); Chloride 111 mmol/L (98-107); Glucose 99 mg/dL (74-106); Potassium 3.5 mmol/L (3.5-5.1); Sodium 138 mmol/L (136-145)
[2023-08-19 05:33] LABS: Bilirubin, Total 1.6 mg/dL (0.2-1.0); Phosphorus 1.5 mg/dL (2.4-5.1); Total Protein 5.2 g/dL (5.7-8.2)
[2023-08-19 05:35] LABS: Alanine Aminotransferase < 9 U/L (7-40)
[2023-08-19 06:03] LABS: Magnesium 1.8 mg/dL (1.6-2.6)
[2023-08-19] MEDS: LACTULOSE 20Gm/30ML SOLN PO SCH (13:28)
[2023-08-19 14:40] LABS: Basophils # (auto) 0 10 ^3/uL (0-0.2); Eosinophils # (auto) 0.2 10 ^3/uL (0-0.8); Eosinophils % (auto) 5.7 % (0.0-7.0); Lymphocytes # (auto) 0.5 10 ^3/uL (0.4-5.4); Monocytes # (auto) 0.4 10 ^3/uL (0-1.3)
[2023-08-19 14:42] LABS: Basophils % (auto) 0.2 % (0.0-2.0); Hematocrit 23.5 % (36.0-46.0); Hemoglobin 7.6 g/dL (12.2-16.2); Lymphocytes % (auto) 11.9 % (10.0-50.0); Mean Corpuscular Hgb Conc. 32.4 g/dL (32.0-36.0); Mean Corpuscular Volume 89.5 fL (80.0-100.0); Monocytes % (auto) 9.4 % (0.0-12.0); Neutrophils # (auto) 2.8 10 ^3/uL (1.6-8.6); Neutrophils % (auto) 72.8 % (37.0-80.0); Nucleated Red Blood Cells % 0.1 %; Red Blood Cells 2.63 10^6/uL (4.0-5.20); Red Cell Distribution Width 16.9 % (11.8-14.3); White Blood Cell 3.9 10^3/uL (4.4-10.8)
[2023-08-19] MEDS: POTASSIUM PHOSPHATE 44 MEQ in D5W 5% 250 ML IV ONE (16:16)
[2023-08-20] VITALS (25 sets, daily range): BP systolic 111–151; BP diastolic 52–89; PULSE 79–113; RESP 13–29; TEMP 98.1–99.1; O2SAT 89–100
[2023-08-20 06:15] LABS: Basophils # (auto) 0 10 ^3/uL (0-0.2); Eosinophils # (auto) 0.3 10 ^3/uL (0-0.8); Hemoglobin 7.5 g/dL (12.2-16.2); Monocytes # (auto) 0.5 10 ^3/uL (0-1.3); Neutrophils # (auto) 2.5 10 ^3/uL (1.6-8.6)
[2023-08-20 06:22] LABS: Basophils % (auto) 0.6 % (0.0-2.0); Eosinophils % (auto) 7.3 % (0.0-7.0); Hematocrit 23.3 % (36.0-46.0); Lymphocytes # (auto) 0.5 10 ^3/uL (0.4-5.4); Lymphocytes % (auto) 12.1 % (10.0-50.0); Mean Corpuscular Hgb Conc. 32.3 g/dL (32.0-36.0); Mean Corpuscular Volume 93.2 fL (80.0-100.0); Monocytes % (auto) 14.3 % (0.0-12.0); Neutrophils % (auto) 65.7 % (37.0-80.0); Nucleated Red Blood Cells % 0.2 %; Red Blood Cells 2.51 10^6/uL (4.0-5.20); Red Cell Distribution Width 17.3 % (11.8-14.3); White Blood Cell 3.8 10^3/uL (4.4-10.8)
[2023-08-20 06:34] LABS: Alanine Aminotransferase 11 U/L (7-40); Albumin 2.3 g/dL (3.2-4.8); Alkaline Phosphatase 76 U/L (46-116); Anion Gap 6 (5-15); Aspartate Aminotransferase 43 U/L (13-40); BUN/Creatinine Ratio 21.8 (10.0-20.0); Blood Urea Nitrogen 12 mg/dL (9-23); Calcium 7.8 mg/dL (8.5-10.1); Carbon Dioxide 22 mmol/L (20-30); Chloride 108 mmol/L (98-107); Glucose 136 mg/dL (74-106); Phosphorus 2.5 mg/dL (2.4-5.1); Potassium 3.5 mmol/L (3.5-5.1); Sodium 136 mmol/L (136-145)
[2023-08-20 06:35] LABS: Total Protein 5.2 g/dL (5.7-8.2)
[2023-08-20] MEDS: LACTULOSE 20Gm/30ML SOLN PO SCH (09:03)
[2023-08-20] MEDS: rifAXIMin 550 MG TAB PO SCH (11:45)
[2023-08-20] MEDS: FUROSEMIDE 20 MG/2 ML VIAL IV SCH (12:00)
[2023-08-20] MEDS: POLYETHYLENE GLYCOL 17 GM PWDR PO SCH (12:00)
[2023-08-20] MEDS: ONDANSETRON HCL 4 MG/2 ML VIAL IV PRN (12:17)
[2023-08-20] MEDS: POTASSIUM PHOSPHATE 44 MEQ in D5W 5% 250 ML IV ONE (18:14)
[2023-08-21] VITALS (18 sets, daily range): BP systolic 106–152; BP diastolic 56–85; PULSE 81–120; RESP 17–28; TEMP 97.7–99.1; O2SAT 91–100
[2023-08-21 07:07] LABS: Alanine Aminotransferase 13 U/L (7-40); Albumin 2.4 g/dL (3.2-4.8); Alkaline Phosphatase 80 U/L (46-116); Anion Gap 4 (5-15); Aspartate Aminotransferase 39 U/L (13-40); BUN/Creatinine Ratio 19.3 (10.0-20.0); Basophils # (auto) 0 10 ^3/uL (0-0.2); Blood Urea Nitrogen 11 mg/dL (9-23); Calcium 7.6 mg/dL (8.5-10.1); Carbon Dioxide 27 mmol/L (20-30); Chloride 106 mmol/L (98-107); Eosinophils # (auto) 0.3 10 ^3/uL (0-0.8); Glucose 124 mg/dL (74-106); Hematocrit 23.5 % (36.0-46.0); Hemoglobin 7.8 g/dL (12.2-16.2); Lymphocytes # (auto) 0.5 10 ^3/uL (0.4-5.4); Mean Corpuscular Hemoglobin 30.5 pg (28.0-32.0); Monocytes # (auto) 0.7 10 ^3/uL (0-1.3); Monocytes % (auto) 16.1 % (0.0-12.0); Neutrophils # (auto) 2.8 10 ^3/uL (1.6-8.6); Nucleated Red Blood Cells % 0.1 %; Potassium 3.7 mmol/L (3.5-5.1); Sodium 137 mmol/L (136-145); White Blood Cell 4.3 10^3/uL (4.4-10.8)
[2023-08-21 07:08] LABS: Phosphorus 3.5 mg/dL (2.4-5.1); Total Protein 5.2 g/dL (5.7-8.2)
[2023-08-21 07:10] LABS: Basophils % (auto) 0.5 % (0.0-2.0); Eosinophils % (auto) 7.2 % (0.0-7.0); Mean Corpuscular Volume 92.5 fL (80.0-100.0); Neutrophils % (auto) 64.2 % (37.0-80.0); Red Blood Cells 2.54 10^6/uL (4.0-5.20); Red Cell Distribution Width 17.5 % (11.8-14.3)
[2023-08-21] MEDS: FUROSEMIDE 40 MG/4 ML VIAL IV SCH (09:54)
[2023-08-21] MEDS: SPIRONOLACTONE 25 MG TAB PO ONE (11:38)
[2023-08-21 11:53] LABS: Urine Bacteria MOD /hpf (None Seen); Urine Blood Negative /uL (Negative); Urine Clarity Turbid (Clear); Urine Color Colorless (Yellow); Urine Protein, UAD Negative (Negative); Urine Specific Gravity 1.005 (1.001-1.035); Urine Urobilinogen Normal (Negative); Urine WBC 21 /hpf (0 - 5); Urine WBC Clumps PRESENT /hpf (None Seen)
[2023-08-21 12:50] LABS: Magnesium 1.5 mg/dL (1.6-2.6)
[2023-08-21 13:12] LABS: Magnesium 1.6 mg/dL (1.6-2.6)
[2023-08-21] MEDS: MORPHINE SULFATE INJ 2 MG/ml SYRG IV PRN (21:08)
[2023-08-21] MEDS: PANTOPRAZOLE 40 MG/10 ML VIAL INJ IV SCH (21:19)
[2023-08-22] VITALS (8 sets, daily range): BP systolic 103–141; BP diastolic 59–72; PULSE 78–101; RESP 16–18; TEMP 97.9–98.3; O2SAT 91–99
[2023-08-22] MEDS: SPIRONOLACTONE 25 MG TAB PO SCH (08:41)
[2023-08-22 09:02] LABS: Hematocrit 27.3 % (36.0-46.0); Hemoglobin 8.7 g/dL (12.2-16.2); Mean Corpuscular Hemoglobin 29.3 pg (28.0-32.0); Mean Corpuscular Hgb Conc. 31.7 g/dL (32.0-36.0); Mean Corpuscular Volume 92.4 fL (80.0-100.0); Red Blood Cells 2.96 10^6/uL (4.0-5.20); Red Cell Distribution Width 18.4 % (11.8-14.3); White Blood Cell 4.4 10^3/uL (4.4-10.8)
[2023-08-22 09:06] LABS: Band Neutrophils % (manual) 0; Blast Cells 0; Metamyelocytes % 0; Myelocytes % 0; Reactive Lymphocytes 0
[2023-08-22 09:15] LABS: Albumin 2.4 g/dL (3.2-4.8); Alkaline Phosphatase 86 U/L (46-116); Anion Gap 4 (5-15); Aspartate Aminotransferase 32 U/L (13-40); BUN/Creatinine Ratio 16.4 (10.0-20.0); Bilirubin, Total 2.2 mg/dL (0.2-1.0); Blood Urea Nitrogen 11 mg/dL (9-23); Calcium 7.9 mg/dL (8.5-10.1); Carbon Dioxide 30 mmol/L (20-30); Chloride 104 mmol/L (98-107); Glucose 103 mg/dL (74-106); Potassium 3.6 mmol/L (3.5-5.1); Sodium 138 mmol/L (136-145); Total Protein 5.4 g/dL (5.7-8.2)
[2023-08-22 09:30] LABS: Alanine Aminotransferase < 9 U/L (7-40)
[2023-08-22 11:38] LABS: Basophils % (manual) 1 (0.0-2.0); Eosinophils % (manual) 9 (0-7); Lymphocytes % (manual) 9 (10.0-50.0); Monocytes % (manual) 17 (0-12); Platelet Estimate Decreased; Promyelocytes % 1
[2023-08-22] MEDS: METOPROLOL TARTRATE 25 MG TAB PO ONE (14:13)
[2023-08-22] MEDS: phytonadione 10 MG in SODIUM CHL 0.9% 50 ML IV ONE (19:00)
[2023-08-22] MEDS: METOPROLOL TARTRATE 25 MG TAB PO SCH (22:00)
[2023-08-23] VITALS (7 sets, daily range): BP systolic 105–146; BP diastolic 42–68; PULSE 63–107; RESP 16–19; TEMP 97.6–98.5; O2SAT 91–97
[2023-08-23 07:08] LABS: Hematocrit 27.8 % (36.0-46.0); Hemoglobin 9.1 g/dL (12.2-16.2); Mean Corpuscular Hemoglobin 31.2 pg (28.0-32.0); Mean Corpuscular Hgb Conc. 32.8 g/dL (32.0-36.0); Mean Corpuscular Volume 95.3 fL (80.0-100.0); Red Blood Cells 2.92 10^6/uL (4.0-5.20); White Blood Cell 4.9 10^3/uL (4.4-10.8)
[2023-08-23 07:31] LABS: Alanine Aminotransferase 11 U/L (7-40); Albumin 2.5 g/dL (3.2-4.8); Alkaline Phosphatase 90 U/L (46-116); Anion Gap 6 (5-15); Aspartate Aminotransferase 47 U/L (13-40); BUN/Creatinine Ratio 14.5 (10.0-20.0); Blood Urea Nitrogen 10 mg/dL (9-23); Calcium 8.1 mg/dL (8.5-10.1); Carbon Dioxide 30 mmol/L (20-30); Chloride 101 mmol/L (98-107); Glucose 100 mg/dL (74-106); Magnesium 1.6 mg/dL (1.6-2.6); Potassium 3.7 mmol/L (3.5-5.1); Sodium 137 mmol/L (136-145)
[2023-08-23 07:32] LABS: Bilirubin, Total 2.6 mg/dL (0.2-1.0); Total Protein 5.9 g/dL (5.7-8.2)
[2023-08-23 07:34] LABS: Basophils % (manual) 0 (0.0-2.0); Blast Cells 0; Myelocytes % 0; Promyelocytes % 0; Reactive Lymphocytes 0; Red Cell Distribution Width 22.4 % (11.8-14.3)
[2023-08-23 08:32] LABS: Anisocytosis Slight; Band Neutrophils % (manual) 12; Eosinophils % (manual) 4 (0-7); Lymphocytes % (manual) 13 (10.0-50.0); Metamyelocytes % 2; Monocytes % (manual) 12 (0-12); Platelet Estimate Decreased
[2023-08-23] MEDS: FUROSEMIDE 40 MG TAB PO SCH (10:00)
[2023-08-23] MEDS ORDERED: POLY335015 PO (11:10)
[2023-08-23] MEDS ORDERED: FURO40TA4 PO (11:10)
[2023-08-23] MEDS ORDERED: PANT40TA2 PO (11:10)
[2023-08-23] MEDS ORDERED: LACT10SO3 PO (11:10)
[2023-08-23 13:07] LABS: Anti-Centromere B Antibody <0.2 AI (0.0-0.9); Anti-Jo-1 Antibody <0.2 AI (0.0-0.9); Anti-dsDNA Antibody <1 IU/mL (0-9); Antichromatin Antibody 0.2 AI (0.0-0.9); Antiscleroderma-70 Antibody <0.2 AI (0.0-0.9); RNP Antibody <0.2 AI (0.0-0.9); Sjogren's Anti-SS-A Antibody 1.8 AI (0.0-0.9); Sjogren's Anti-SS-B Antibody <0.2 AI (0.0-0.9); Smith Antibody <0.2 AI (0.0-0.9)
[2023-08-23 17:23] LABS: Base Excess 6.5 mmol/L (-2.0-2.0)
[2023-08-24] MEDS: HALOPERIDOL LACTATE 5 MG/ML INJ VIAL IM ONE (01:00)
[2023-08-24 08:00] VITALS: PULSE 89
[2023-08-24 08:49] VITALS: BP 112/54; PULSE 87; RESP 20; TEMP 97.8; O2SAT 96
[2023-08-24 09:35] LABS: Hepatitis B Core Total AB Negative (Negative)
[2023-08-24 10:47] LABS: Hepatitis A Total Antibody Positive (Negative); Hepatitis B Surface Antibody Negative (Negative); Hepatitis C Antibody Negative (Negative)
[2023-08-24 11:44] LABS: Hepatitis B Surface Antigen Negative (Negative)
[2023-08-24 13:15] VITALS: BP 108/59; PULSE 79; RESP 20; TEMP 97.7; O2SAT 96
[2023-08-24 16:49] VITALS: BP 101/45; PULSE 73; RESP 18; TEMP 98; O2SAT 95
== END 2023-08-24 17:35 | disposition hospice, home (50) | DRG 291 ==
LOC: UNDOADMIN 13:26 → TELE 13:26 → ICU WEST 08-17 21:15 → DOU IN ICU 08-18 12:42 → TELE-EAST 08-21 19:51
PROVIDERS: ADMIT Internal Medicine; ATTEND Internal Medicine
DX: I11.0 Hypertensive heart disease with heart failure (principal); I50.43 Acute on chronic combined systolic (congestive) and diastolic (congestive) heart failure; J96.00 Acute respiratory failure, unspecified whether with hypoxia or hypercapnia; K74.3 Primary biliary cirrhosis; F32.A Depression, unspecified; D64.9 Anemia, unspecified; I27.21 Secondary pulmonary arterial hypertension; D69.6 Thrombocytopenia, unspecified; I48.91 Unspecified atrial fibrillation; Z79.899 Other long term (current) drug therapy; Z82.49 Family history of ischemic heart disease and other diseases of the circulatory system
CPT/HCPCS: 36415; 36600; 71045; 80053; 80069; 81001; 82140; 82805; 82962; 83516; 83690; 83735; 83880; 84100; 84443; 85007; 85025; 85027; 85610; 85730; 86225; 86235; 86704; 86706; 86708; 86803; 87081; 87340; 93306; 97110; 97116; 97163; 97530; C9113; G0378; J2405; J3430; J7060

== ENCOUNTER 2023-09-26 14:30 | Inpatient (IN) | payer OTHER ==
[~2023-09-26] VITALS: Ht 152.4 cm; Wt 66.5 kg
[~2023-09-26 14:30] MED LIST changes: +AMLO1TAB22 PO; +CITA-73 PO; -CITA10TA8 PO; +FURO40TA4 PO; +LACT10SO3 PO; -LEVO500T91 PO; -MET500T PO; +PANT-62 PO; +PANT40TA2 PO; +POLY335015 PO; +SPIR50TA5 PO
[2023-09-26 15:41] LABS: Basophils # (auto) 0 10 ^3/uL (0-0.2); Eosinophils # (auto) 0.1 10 ^3/uL (0-0.8); Eosinophils % (auto) 3.6 % (0.0-7.0); Hematocrit 30.4 % (36.0-46.0); Lymphocytes # (auto) 0.6 10 ^3/uL (0.4-5.4); Lymphocytes % (auto) 17.8 % (10.0-50.0); Mean Corpuscular Hemoglobin 32.6 pg (28.0-32.0); Mean Corpuscular Hgb Conc. 32.9 g/dL (32.0-36.0); Mean Corpuscular Volume 99.1 fL (80.0-100.0); Monocytes # (auto) 0.5 10 ^3/uL (0-1.3); Neutrophils % (auto) 60.6 % (37.0-80.0); Nucleated Red Blood Cells % 0.2 %; Red Blood Cells 3.07 10^6/uL (4.0-5.20); Red Cell Distribution Width 19.9 % (11.8-14.3); White Blood Cell 3.2 10^3/uL (4.4-10.8)
[2023-09-26 16:05] LABS: Alkaline Phosphatase 150 U/L (46-116); Calcium 8.8 mg/dL (8.7-10.4); Carbon Dioxide 24 mmol/L (20-30); Chloride 107 mmol/L (98-107); Glucose 113 mg/dL (74-106)
[2023-09-26 16:06] LABS: Alanine Aminotransferase < 9 U/L (7-40); Albumin 2.7 g/dL (3.2-4.8); Anion Gap 8 (5-15); Aspartate Aminotransferase 37 U/L (13-40); BUN/Creatinine Ratio 13.2 (10.0-20.0); Bilirubin, Total 1.7 mg/dL (0.2-1.0); Blood Urea Nitrogen 9 mg/dL (9-23); Lipase 38 U/L (12-53); Potassium 4.3 mmol/L (3.5-5.1); Sodium 139 mmol/L (136-145)
[2023-09-26 16:09] LABS: INR 1.27 (0.9-1.15); Partial Thromboplastin Time 29.7 SEC (24.5-34.5); Prothrombin Time 13.2 sec (9.3-11.8)
[2023-09-26] MEDS ORDERED: MORPHINE SULFATE INJ 2 MG/ml SYRG IV PRN (19:30)
[2023-09-26] MEDS ORDERED: DOCUSATE SOD 100 MG CAP PO PRN (19:30)
[2023-09-26] MEDS ORDERED: NITROGLYCERIN 0.4 MG SL TAB SL PRN (19:30)
[2023-09-26] MEDS: PANTOPRAZOLE 40 MG/10 ML VIAL INJ IV ONE (20:29)
[2023-09-26] MEDS: SODIUM CHLORIDE 0.9% 1,000 ML IV SCH (20:29)
[2023-09-26 20:35] VITALS: PULSE 113; RESP 17; O2SAT 98
[2023-09-26] MEDS: MORPHINE SULFATE INJ 2 MG/ml SYRG IV PRN (21:23)
[2023-09-26] MEDS: LACTULOSE 20Gm/30ML SOLN PO SCH (22:37)
[2023-09-26] MEDS: PANTOPRAZOLE 40 MG/10 ML VIAL INJ IV SCH (22:37)
[2023-09-26] MEDS: FAMOTIDINE 20 MG TAB PO SCH (22:37)
[2023-09-26] MEDS: METOPROLOL TARTRATE 25 MG TAB PO SCH (22:37)
[2023-09-27] VITALS (10 sets, daily range): BP systolic 102–140; BP diastolic 44–75; PULSE 78–96; RESP 17–18; TEMP 97.4–98.6; O2SAT 96–99
[2023-09-27] MEDS ORDERED: POM PO (01:34)
[2023-09-27] MEDS ORDERED: PANT40TA57 PO (01:34)
[2023-09-27] MEDS ORDERED: NAP500T PO (01:34)
[2023-09-27] MEDS ORDERED: MET25T PO (01:34)
[2023-09-27 06:47] LABS: Hemoglobin 8.4 g/dL (12.2-16.2); Mean Corpuscular Hemoglobin 32.7 pg (28.0-32.0)
[2023-09-27 06:49] LABS: Hematocrit 25.3 % (36.0-46.0); Red Blood Cells 2.56 10^6/uL (4.0-5.20)
[2023-09-27 06:56] LABS: Band Neutrophils % (manual) 0; Basophils % (manual) 0 (0.0-2.0); Blast Cells 0; Metamyelocytes % 0; Myelocytes % 0; Promyelocytes % 0; Reactive Lymphocytes 0
[2023-09-27 07:07] LABS: Albumin 2.4 g/dL (3.2-4.8); Alkaline Phosphatase 128 U/L (46-116); Anion Gap 3 (5-15); Aspartate Aminotransferase 30 U/L (13-40); BUN/Creatinine Ratio 20.7 (10.0-20.0); Blood Urea Nitrogen 12 mg/dL (9-23); Calcium 8.2 mg/dL (8.5-10.1); Carbon Dioxide 27 mmol/L (20-30); Chloride 109 mmol/L (98-107); Glucose 101 mg/dL (74-106); Sodium 139 mmol/L (136-145)
[2023-09-27 07:08] LABS: Bilirubin, Total 1.5 mg/dL (0.2-1.0); Total Protein 6.1 g/dL (5.7-8.2)
[2023-09-27 07:14] LABS: Alanine Aminotransferase < 9 U/L (7-40)
[2023-09-27 08:00] LABS: Eosinophils % (manual) 1 (0-7); Lymphocytes % (manual) 13 (10.0-50.0); Monocytes % (manual) 4 (0-12); Platelet Estimate Adequate
[2023-09-27] MEDS: SPIRONOLACTONE 25 MG TAB PO SCH (10:00)
[2023-09-27] MEDS: amLODIPine BESYLATE 5 MG TAB PO SCH (10:00)
[2023-09-27] MEDS ORDERED: FUROSEMIDE 40 MG TAB PO SCH (10:00)
[2023-09-27] MEDS: LOSARTAN POTASSIUM 50 MG TAB PO SCH (10:00)
[2023-09-27] MEDS: FUROSEMIDE 20 MG/2 ML VIAL IV ONE (10:59)
[2023-09-27 19:16] LABS: Body Fluid Polymorphonuclear 26 % (0-25); Body Fluid Red Blood Cells 370 CUMM (0-2000); Body Fluid White Blood Cells 155 CUMM (0-200)
[2023-09-27] MEDS: ALBUMIN 25% 100 ML IV ONE (21:07)
[2023-09-28] VITALS (49 sets, daily range): BP systolic 110–193; BP diastolic 46–96; PULSE 71–116; RESP 11–25; TEMP 97.4–98.6; O2SAT 95–100
[2023-09-28] MEDS: FUROSEMIDE 20 MG/2 ML VIAL IV ONE (11:19)
[2023-09-28] MEDS: CITALOPRAM HYDROBR 20 MG TAB PO SCH (11:19)
[2023-09-28] MEDS: ONDANSETRON HCL 4 MG/2 ML VIAL IV PRN (11:27)
[2023-09-28 12:07] LABS: Protein, Body Fluid 2.1 g/dL (.)
[2023-09-28] MEDS: ONDANSETRON HCL 4 MG/2 ML VIAL IV ONE (12:45)
[2023-09-28] MEDS: SODIUM CHLORIDE 0.9% 1,000 ML IV SCH (13:30)
[2023-09-28] MEDS: OCTREOTIDE ACETATE 500 MCG in SODIUM CHL 0.9% 99 ML IV SCH (13:41)
[2023-09-28] MEDS: PANTOPRAZOLE 40mg/50ML NS AE 50 ML IV SCH (13:42)
[2023-09-28 15:51] LABS: Basophils # (auto) 0 10 ^3/uL (0-0.2); Basophils % (auto) 0.7 % (0.0-2.0); Eosinophils # (auto) 0 10 ^3/uL (0-0.8); Eosinophils % (auto) 0.5 % (0.0-7.0); Hematocrit 27.1 % (36.0-46.0); Hemoglobin 8.9 g/dL (12.2-16.2); Lymphocytes # (auto) 0.2 10 ^3/uL (0.4-5.4); Lymphocytes % (auto) 8.4 % (10.0-50.0); Mean Corpuscular Hemoglobin 32.1 pg (28.0-32.0); Mean Corpuscular Volume 97.3 fL (80.0-100.0); Monocytes # (auto) 0.3 10 ^3/uL (0-1.3); Monocytes % (auto) 10.7 % (0.0-12.0); Neutrophils # (auto) 2.2 10 ^3/uL (1.6-8.6); Neutrophils % (auto) 79.7 % (37.0-80.0); Nucleated Red Blood Cells % 0.1 %; Red Blood Cells 2.78 10^6/uL (4.0-5.20); Red Cell Distribution Width 18.5 % (11.8-14.3); White Blood Cell 2.7 10^3/uL (4.4-10.8)
[2023-09-28 16:02] LABS: Anion Gap 8 (5-15); Calcium 8.3 mg/dL (8.5-10.1); Carbon Dioxide 25 mmol/L (20-30); Chloride 108 mmol/L (98-107); Potassium 3.3 mmol/L (3.5-5.1); Sodium 141 mmol/L (136-145)
[2023-09-28 16:07] LABS: Glucose 134 mg/dL (74-106)
[2023-09-28 16:08] LABS: BUN/Creatinine Ratio 23.7 (10.0-20.0); Blood Urea Nitrogen 14 mg/dL (9-23)
[2023-09-28] MEDS: cefTRIAXone 1GM/50ML D5W 50 ML IV ONE (16:53)
[2023-09-28 18:12] LABS: Urine Bacteria FEW /hpf (None Seen); Urine Blood TRACE /uL (Negative); Urine Clarity Clear (Clear); Urine Color Colorless (Yellow); Urine Hyaline Cast MOD /lpf (0 - 2); Urine Protein, UAD Negative (Negative); Urine Specific Gravity 1.008 (1.001-1.035); Urine Urobilinogen Normal (Negative); Urine WBC 1 /hpf (0 - 5)
[2023-09-28] MEDS: POTASSIUM CHL 20MEQ/100ML 100 ML IV SCH (21:04)
[2023-09-29] VITALS (71 sets, daily range): BP systolic 114–163; BP diastolic 41–87; PULSE 87–115; RESP 11–40; TEMP 97.9–99.1; O2SAT 98–100
[2023-09-29 03:49] LABS: Hematocrit 26.2 % (36.0-46.0); Mean Corpuscular Hemoglobin 31.9 pg (28.0-32.0); Mean Corpuscular Hgb Conc. 34.5 g/dL (32.0-36.0); Mean Corpuscular Volume 92.7 fL (80.0-100.0); Red Blood Cells 2.83 10^6/uL (4.0-5.20); White Blood Cell 2.8 10^3/uL (4.4-10.8)
[2023-09-29 03:58] LABS: Albumin 2.3 g/dL (3.2-4.8); Alkaline Phosphatase 92 U/L (46-116); Anion Gap 11 (5-15); Aspartate Aminotransferase 35 U/L (13-40); Blood Urea Nitrogen 13 mg/dL (9-23); Calcium 8.1 mg/dL (8.7-10.4); Carbon Dioxide 26 mmol/L (20-30); Chloride 108 mmol/L (98-107); Glucose 122 mg/dL (74-106); Potassium 4.2 mmol/L (3.5-5.1); Sodium 145 mmol/L (136-145); Total Protein 5.3 g/dL (5.7-8.2)
[2023-09-29 04:04] LABS: Basophils % (manual) 0 (0.0-2.0); Blast Cells 0; Metamyelocytes % 0; Myelocytes % 0; Promyelocytes % 0; Reactive Lymphocytes 0
[2023-09-29 04:06] LABS: Alanine Aminotransferase < 9 U/L (7-40)
[2023-09-29 04:09] LABS: Bilirubin, Total 2.1 mg/dL (0.2-1.0)
[2023-09-29 05:19] LABS: Band Neutrophils % (manual) 1; Eosinophils % (manual) 1 (0-7); Lymphocytes % (manual) 18 (10.0-50.0)
[2023-09-29 05:20] LABS: Anisocytosis Slight; Monocytes % (manual) 16 (0-12); Platelet Estimate Decreased; Stomatocytes Few
[2023-09-29] MEDS: cefTRIAXone 1GM/50ML D5W 50 ML IV SCH (08:17)
[2023-09-29] MEDS ORDERED: LABETALOL HCL 5 MG/ML 4ML SYRINGE IV PRN (10:15)
[2023-09-29] MEDS ORDERED: MET25T PO (13:18)
[2023-09-29] MEDS ORDERED: HYDRX10T PO (13:23)
[2023-09-29] MEDS: LIDOCAINE 1% (LOCAL ANESTH.) PF 5ml SDV ID ONE (17:30)
[2023-09-29] MEDS: SODIUM CHLOR 0.9% PF (SALINE LOCK) 10ML VIAL/SYR IV SCH (22:00)
[2023-09-30] VITALS (28 sets, daily range): BP systolic 104–145; BP diastolic 47–85; PULSE 56–116; RESP 11–22; TEMP 98.3–99; O2SAT 87–100
[2023-09-30 05:18] LABS: Hematocrit 26.2 % (36.0-46.0); Hemoglobin 8.8 g/dL (12.2-16.2); Mean Corpuscular Hemoglobin 31.9 pg (28.0-32.0); Mean Corpuscular Hgb Conc. 33.8 g/dL (32.0-36.0); Mean Corpuscular Volume 94.6 fL (80.0-100.0); Red Blood Cells 2.77 10^6/uL (4.0-5.20); White Blood Cell 2.5 10^3/uL (4.4-10.8)
[2023-09-30 05:20] LABS: Red Cell Distribution Width 20.7 % (11.8-14.3)
[2023-09-30 05:21] LABS: Basophils % (manual) 0 (0.0-2.0); Blast Cells 0; Metamyelocytes % 0; Myelocytes % 0; Promyelocytes % 0; Reactive Lymphocytes 0
[2023-09-30 05:33] LABS: Chloride 111 mmol/L (98-107); Potassium 3.6 mmol/L (3.5-5.1); Sodium 142 mmol/L (136-145)
[2023-09-30 05:34] LABS: Anion Gap 4 (5-15); Carbon Dioxide 27 mmol/L (20-30)
[2023-09-30 05:37] LABS: Anisocytosis Slight; Band Neutrophils % (manual) 3; Eosinophils % (manual) 7 (0-7); Lymphocytes % (manual) 16 (10.0-50.0); Monocytes % (manual) 9 (0-12); Platelet Estimate Decreased
[2023-09-30 05:40] LABS: BUN/Creatinine Ratio 20.3 (10.0-20.0); Blood Urea Nitrogen 13 mg/dL (9-23); Glucose 107 mg/dL (74-106)
[2023-09-30] MEDS: ALBUTEROL SULF 2.5 MG/0.5ML(0.5%) NEB SOLN NEB PRN (15:18)
[2023-09-30] MEDS: KETOROLAC TROMETH 30 MG/ML 1ML VIAL IV ONE (16:09)
[2023-10-01] VITALS (15 sets, daily range): BP systolic 100–133; BP diastolic 56–73; PULSE 63–83; RESP 11–19; TEMP 97.7–98.9; O2SAT 94–100
[2023-10-01 07:22] LABS: Hematocrit 25.7 % (36.0-46.0); Hemoglobin 8.5 g/dL (12.2-16.2); Mean Corpuscular Hemoglobin 31.8 pg (28.0-32.0); Mean Corpuscular Hgb Conc. 33.2 g/dL (32.0-36.0); Mean Corpuscular Volume 95.9 fL (80.0-100.0); Red Blood Cells 2.68 10^6/uL (4.0-5.20); Red Cell Distribution Width 20.7 % (11.8-14.3); White Blood Cell 2.1 10^3/uL (4.4-10.8)
[2023-10-01 07:33] LABS: Alkaline Phosphatase 78 U/L (46-116); Anion Gap 2 (5-15); Aspartate Aminotransferase 29 U/L (13-40); BUN/Creatinine Ratio 18.8 (10.0-20.0); Blood Urea Nitrogen 12 mg/dL (9-23); Calcium 7.8 mg/dL (8.5-10.1); Carbon Dioxide 28 mmol/L (20-30); Chloride 112 mmol/L (98-107); Glucose 100 mg/dL (74-106); Potassium 3.7 mmol/L (3.5-5.1); Sodium 142 mmol/L (136-145)
[2023-10-01 07:34] LABS: Blast Cells 0; Metamyelocytes % 0; Myelocytes % 0; Promyelocytes % 0; Reactive Lymphocytes 0
[2023-10-01 07:35] LABS: Bilirubin, Total 1.2 mg/dL (0.2-1.0); Total Protein 4.9 g/dL (5.7-8.2)
[2023-10-01 07:36] LABS: Alanine Aminotransferase < 9 U/L (7-40)
[2023-10-01 07:54] LABS: Band Neutrophils % (manual) 2; Basophils % (manual) 1 (0.0-2.0); Eosinophils % (manual) 8 (0-7); Lymphocytes % (manual) 18 (10.0-50.0); Monocytes % (manual) 22 (0-12)
[2023-10-01 07:55] LABS: Anisocytosis Slight; Platelet Estimate Decreased
[2023-10-01] MEDS: OCTREOTIDE ACETATE 500 MCG in SODIUM CHL 0.9% 99 ML IV SCH (15:35)
[2023-10-01] MEDS: PANTOPRAZOLE 40 MG/10 ML VIAL INJ IV SCH (21:41)
[2023-10-02] VITALS (10 sets, daily range): BP systolic 104–135; BP diastolic 53–78; PULSE 61–93; RESP 16–19; TEMP 98.1–99.2; O2SAT 92–100
[2023-10-02 06:11] LABS: Hematocrit 28.7 % (36.0-46.0); Hemoglobin 9.4 g/dL (12.2-16.2); Mean Corpuscular Hemoglobin 31.4 pg (28.0-32.0); Mean Corpuscular Hgb Conc. 32.9 g/dL (32.0-36.0); Mean Corpuscular Volume 95.5 fL (80.0-100.0); Red Cell Distribution Width 20.2 % (11.8-14.3); White Blood Cell 2.8 10^3/uL (4.4-10.8)
[2023-10-02 06:13] LABS: Basophils % (manual) 0 (0.0-2.0); Blast Cells 0; Metamyelocytes % 0; Promyelocytes % 0; Reactive Lymphocytes 0
[2023-10-02 06:36] LABS: Albumin 2.3 g/dL (3.2-4.8); Alkaline Phosphatase 90 U/L (46-116); Anion Gap 3 (5-15); Aspartate Aminotransferase 31 U/L (13-40); BUN/Creatinine Ratio 20.9 (10.0-20.0); Blood Urea Nitrogen 14 mg/dL (9-23); Calcium 8.1 mg/dL (8.5-10.1); Carbon Dioxide 28 mmol/L (20-30); Chloride 109 mmol/L (98-107); Glucose 105 mg/dL (74-106); Sodium 140 mmol/L (136-145)
[2023-10-02 06:37] LABS: Bilirubin, Total 1.3 mg/dL (0.2-1.0); Total Protein 5.5 g/dL (5.7-8.2)
[2023-10-02 06:44] LABS: Alanine Aminotransferase < 9 U/L (7-40)
[2023-10-02 07:00] LABS: Anisocytosis Slight; Band Neutrophils % (manual) 1; Eosinophils % (manual) 2 (0-7); Lymphocytes % (manual) 16 (10.0-50.0); Monocytes % (manual) 17 (0-12); Myelocytes % 1
[2023-10-02 07:01] LABS: Platelet Estimate Decreased
[2023-10-02] MEDS ORDERED: FUROSEMIDE 20 MG/2 ML VIAL IV SCH (22:00)
[2023-10-03] VITALS (7 sets, daily range): BP systolic 116–137; BP diastolic 64–79; PULSE 83–99; RESP 16–18; TEMP 97.7–98.7; O2SAT 94–100
[2023-10-03 05:37] LABS: Hematocrit 28.6 % (36.0-46.0); Hemoglobin 9.6 g/dL (12.2-16.2); Mean Corpuscular Hemoglobin 31.9 pg (28.0-32.0); Mean Corpuscular Hgb Conc. 33.8 g/dL (32.0-36.0); Mean Corpuscular Volume 94.4 fL (80.0-100.0); Red Blood Cells 3.03 10^6/uL (4.0-5.20); Red Cell Distribution Width 19.4 % (11.8-14.3); White Blood Cell 2.2 10^3/uL (4.4-10.8)
[2023-10-03 05:39] LABS: Band Neutrophils % (manual) 0; Blast Cells 0; Metamyelocytes % 0; Myelocytes % 0; Promyelocytes % 0; Reactive Lymphocytes 0
[2023-10-03 07:42] LABS: Basophils % (manual) 1 (0.0-2.0); Eosinophils % (manual) 6 (0-7); Lymphocytes % (manual) 28 (10.0-50.0); Monocytes % (manual) 19 (0-12); Platelet Estimate Decreased
[2023-10-03] MEDS: FUROSEMIDE 20 MG/2 ML VIAL IV SCH (09:10)
== END 2023-10-03 15:00 | disposition hospice, home (50) | DRG 432 ==
LOC: ER 14:30 → OVERFLOW 19:48 → CENTRAL 23:45 → ICU WEST 09-28 13:12 → ICU CENTRL 09-29 16:01 → TELE-WESTW 10-01 11:19
PROVIDERS: ADMIT Internal Medicine; ATTEND Emergency Medicine
PROC: 0W9G3ZZ Drainage of Peritoneal Cavity, Percutaneous Approach (ICD-10-PCS; 2023-09-27)
PROC: 30233N1 Transfusion of Nonautologous Red Blood Cells into Peripheral Vein, Percutaneous Approach (ICD-10-PCS; principal; 2023-09-28)
PROC: 05HC33Z Insertion of Infusion Device into Left Basilic Vein, Percutaneous Approach (ICD-10-PCS; 2023-09-28)
PROC: B54NZZA Ultrasonography of Left Upper Extremity Veins, Guidance (ICD-10-PCS; 2023-09-28)
PROC: 02HV33Z Insertion of Infusion Device into Superior Vena Cava, Percutaneous Approach (ICD-10-PCS; 2023-09-29)
PROC: B548ZZA Ultrasonography of Superior Vena Cava, Guidance (ICD-10-PCS; 2023-09-29)
DX: K74.3 Primary biliary cirrhosis (principal); E43 Unspecified severe protein-calorie malnutrition; I50.33 Acute on chronic diastolic (congestive) heart failure; J96.01 Acute respiratory failure with hypoxia; I85.11 Secondary esophageal varices with bleeding; R18.8 Other ascites; D61.818 Other pancytopenia; R62.7 Adult failure to thrive; I11.0 Hypertensive heart disease with heart failure; F32.A Depression, unspecified; F51.04 Psychophysiologic insomnia; I48.0 Paroxysmal atrial fibrillation; Z88.5 Allergy status to narcotic agent; Z88.8 Allergy status to other drugs, medicaments and biological substances; Z79.899 Other long term (current) drug therapy; Z82.49 Family history of ischemic heart disease and other diseases of the circulatory system; Z68.28 Body mass index [BMI] 28.0-28.9, adult
CPT/HCPCS: 36415; 36569; 71045; 76705; 76937; 76942; 80048; 80053; 81001; 82140; 82270; 83690; 83986; 85007; 85025; 85027; 85610; 85730; 86850; 86900; 86901; 86920; 87081; 87205; 89051; 93005; 94640; 96374; 96375; C9113; G0378; J1885; J2405; J3480; P9047

== ENCOUNTER 2023-10-13 03:57 | Emergency (ER) | payer OTHER ==
[~2023-10-13] VITALS: Ht 160 cm; Wt 75.0 kg
[~2023-10-13 03:57] MED LIST changes: -FAMO20TA10 PO; +HYDRX10T PO; +MET25T PO; -METO25TA5 PO; +NAP500T PO; -PANT-62 PO; -PANT40TA2 PO; +PANT40TA57 PO; +POM PO
[2023-10-13] MEDS: dilTIAZem 25 MG/5 ML VIAL IV ONE (04:23)
[2023-10-13 04:28] VITALS: O2SAT 100
[2023-10-13 05:41] LABS: Alanine Aminotransferase 11 U/L (7-40); Albumin 2.2 g/dL (3.2-4.8); Alkaline Phosphatase 115 U/L (46-116); Anion Gap 6 (5-15); Aspartate Aminotransferase 48 U/L (13-40); BUN/Creatinine Ratio 11.1 (10.0-20.0); Bilirubin, Total 3.6 mg/dL (0.2-1.0); Blood Urea Nitrogen 8 mg/dL (9-23); Calcium 8.2 mg/dL (8.7-10.4); Carbon Dioxide 23 mmol/L (20-30); Chloride 104 mmol/L (98-107); Glucose 125 mg/dL (74-106); Lipase 24 U/L (12-53); Potassium 3.6 mmol/L (3.5-5.1); Sodium 133 mmol/L (136-145); Total Protein 6.5 g/dL (5.7-8.2)
[2023-10-13 06:34] LABS: Hematocrit 35.3 % (36.0-46.0); Hemoglobin 11.5 g/dL (12.2-16.2); Mean Corpuscular Hemoglobin 32.7 pg (28.0-32.0); Mean Corpuscular Hgb Conc. 32.5 g/dL (32.0-36.0); Mean Corpuscular Volume 100.9 fL (80.0-100.0); White Blood Cell 4.9 10^3/uL (4.4-10.8)
[2023-10-13 06:36] LABS: Basophils % (manual) 0 (0.0-2.0); Blast Cells 0; Eosinophils % (manual) 0 (0-7); Metamyelocytes % 0; Myelocytes % 0; Promyelocytes % 0; Reactive Lymphocytes 0
[2023-10-13 07:27] LABS: Band Neutrophils % (manual) 1; Lymphocytes % (manual) 11 (10.0-50.0); Monocytes % (manual) 13 (0-12)
[2023-10-13 07:28] LABS: Anisocytosis Moderate; Macrocytosis Slight; Platelet Estimate Decreased
[2023-10-13 08:00] VITALS: PULSE 140; RESP 23; O2SAT 99
[2023-10-13] MEDS: dilTIAZem 125mg/125ml BAG KIT 125 ML IV ONE (08:14)
[2023-10-13] MEDS: ALBUMIN 25% 100 ML IV ONE (11:30)
[2023-10-13 14:00] VITALS: TEMP 98
[2023-10-13 15:15] VITALS: BP 98/52; PULSE 85; RESP 20; O2SAT 98
== END 2023-10-13 15:46 | disposition home or self-care (01) ==
LOC: EDUNIT# 03:57 → ER 03:57
DX: I48.91 Unspecified atrial fibrillation (principal); R18.8 Other ascites; I11.0 Hypertensive heart disease with heart failure; I50.9 Heart failure, unspecified; I95.9 Hypotension, unspecified; F32.A Depression, unspecified; K74.60 Unspecified cirrhosis of liver; Z88.5 Allergy status to narcotic agent
CPT/HCPCS: 36415; 49082; 71045; 76705; 76942; 80053; 82248; 83690; 83880; 84484; 85007; 85027; 93005; 96365; 96375; 99291; C1729; P9047